=== PATIENT | female | born 1935 | race Caucasian/White ===

== ENCOUNTER 2017-09-19 16:14 | Inpatient (IN) | payer MEDICARE ==
[~2017-09-19] VITALS: Ht 162.6 cm; Wt 61.2 kg
[2017-09-19] MEDS ORDERED: Sodium Chloride 500ML 500 ML IV ONE ×2 (16:18→18:15)
[2017-09-19] MEDS ORDERED: NAMENDA5 MG ORAL (16:39)
[2017-09-19] MEDS ORDERED: ASPIR 8181 MG ORAL (16:39)
[2017-09-19] MEDS ORDERED: DONEPEZIL HCL10 M2 ORAL (16:39)
[2017-09-19] MEDS ORDERED: ATORVASTATIN CA20 MG ORAL (16:39)
[2017-09-19] MEDS ORDERED: RAMIPRIL10 MG ORAL (16:39)
[2017-09-19] MEDS ORDERED: HYDROCHLOROTHIA25 MG ORAL (16:39)
[2017-09-19 16:41] LABS: BASOPHILS % (AUTO) 1.1 % (0.0-2.0); EOSINOPHILS % (AUTO) 1.1 % (0.0-3.0); HEMATOCRIT 38.2 % (37.0-47.0); HEMOGLOBIN 13.1 G/DL (12.0-16.0); LYMPHOCYTES % (AUTO) 18.9 % (20.0-45.0); MEAN CORPUSCULAR VOLUME 88 FL (80-99); PLATELET COUNT 219 K/UL (150-450); RED BLOOD COUNT 4.32 M/UL (4.20-5.40); RED CELL DISTRIBUTION WIDTH 13.3 % (11.6-14.8); WHITE BLOOD COUNT 9.6 K/UL (4.8-10.8)
[2017-09-19 16:43] VITALS: BP 95/52
[2017-09-19] MEDS ORDERED: RAMIPRIL5 MG ORAL (16:55)
[2017-09-19 16:56] LABS: ANION GAP 12 mmol/L (5-15); BLOOD UREA NITROGEN 52 mg/dL (7-18); CALCIUM 9.7 MG/DL (8.5-10.1); CARBON DIOXIDE 25 MMOL/L (21-32); CHLORIDE 101 MMOL/L (98-107); CREATININE 1.9 MG/DL (0.55-1.30); SODIUM 138 MMOL/L (136-145)
--- NOTE | 2017-09-19 17:04 | Diagnostic Imaging Report ---
Indication: Syncopal episode x2 days Technique: spiral acquisitions obtained through the brain. Angled axial and coronal 5 x 5 mm slices were reconstructed. No IV contrast utilized. Radiation dose was minimized using automated exposure control Total dose length product 1291.03 mGycm. CTDIvol(s) 70.38 mGy Comparison: none FINDINGS: No acute hemorrhage or edema. No mass effect or midline shift. There is age-related enlargement of the ventricles and extra axial CSF spaces. There is periventricular deep white matter ischemic change. Normal etienne-white differentiation. Visualized orbits are unremarkable. Visualized sinuses are unremarkable. Intact calvarium. IMPRESSION: Chronic and age-related changes. Negative for acute intracranial bleed or mass effect The CT scanner at [facility] is accredited by the [employer] and the scans are performed using protocols designed to limit radiation exposure to as low as reasonably achievable to attain images of sufficient resolution adequate for diagnostic evaluation
[2017-09-19 17:13] LABS: ALANINE AMINOTRANSFERASE 23 U/L (12-78); ALBUMIN 3.6 G/DL (3.4-5.0); ALBUMIN/GLOBULIN RATIO 0.9 (1.0-2.7); ALKALINE PHOSPHATASE 58 U/L (46-116); ASPARTATE AMINO TRANSFERASE 16 U/L (15-37); BILIRUBIN,TOTAL 1.1 MG/DL (0.2-1.0); CKMB 1.1 NG/ML (0.0-3.6); CREATINE KINASE 64 U/L (26-308)
[2017-09-19 17:14] LABS: BILIRUBIN,DIRECT 0.3 MG/DL (0.0-0.3)
--- NOTE | 2017-09-19 17:19 | Diagnostic Imaging Report ---
Indication: Dyspnea Technique: One view of the chest Comparison: none Findings: Left chest pacemaker is noted. Lungs and pleural spaces are clear. Normal heart size. Tortuous calcified aorta Impression: No acute process
[2017-09-19 18:22] VITALS: BP 115/93
--- NOTE | 2017-09-19 18:24 | Emergency Room Report ---
History of Present Illness General Chief Complaint: Syncope Source: Patient Present Illness HPI 82-year-old female presents to ED status post syncopal episode. Daughter at bedside states that patient passed out today with shipping and receiving coordinator. Witnessed. No head injury. On arrival patient is awake alert oriented. History of dementia but is answering questions. States she feels okay. Denies any headache. Denies dizziness or chest pain. Per EMS blood pressure was low. Daughter states that patient had pacemaker placed 2 weeks ago at [facility]. Has been having dizziness since pacemaker was placed. Also states that her blood pressure has been on the low side. No other aggravating relieving factors. Denies any other associated symptoms Allergies: Coded Allergies: No Known Allergies (Unverified , 09/19/17) Patient History Past Medical History: dementia Past Surgical History: pacemaker Pertinent Family History: none Social History: Denies: smoking, alcohol use, drug use Now: No Immunizations: UTD Reviewed Nursing Documentation: PMH: Agreed; PSxH: Agreed Nursing Documentation-PMH Hx Cardiac Problems: Yes - PACEMAKER Hx Hypertension: Yes - HIGH CHOLESTEROL Hx Neurological Problems: Yes - DEMENTIA Review of Systems All Other Systems: negative except mentioned in HPI Physical Exam Vital Signs Date Time Temp Pulse Resp B/P (MAP) Pulse Ox O2 Delivery O2 Flow Rate FiO2 09/19/17 16:06 97.2 96 16 96/45 98 Room Air 97.2 Sp02 EP Interpretation: reviewed, normal General Appearance: no apparent distress, alert, GCS 15, non-toxic Head: normocephalic, atraumatic Eyes: bilateral eye normal inspection, bilateral eye PERRL ENT: hearing grossly normal, normal pharynx, no angioedema, normal voice Neck: full range of motion, supple/symm/no masses Respiratory: chest non-tender, lungs clear, normal breath sounds, speaking full sentences Cardiovascular #1: regular rate, rhythm, no edema Cardiovascular #2: 2+ carotid (R), 2+ carotid (L), 2+ radial (R), 2+ radial (L) , 2+ dorsalis pedis (R), 2+ dorsalis pedis (L) Gastrointestinal: normal bowel sounds, non tender, soft, non-distended, no guarding, no rebound Rectal: deferred Genitourinary: normal inspection, no CVA tenderness Musculoskeletal: back normal, gait/station normal, normal range of motion, non- tender Neurologic: alert, oriented x3, responsive, motor strength/tone normal, sensory intact, speech normal Psychiatric: judgement/insight normal, memory normal, mood/affect normal, no suicidal/homicidal ideation Reflexes: 3+ bicep (R), 3+ bicep (L), 3+ tricep (R), 3+ tricep (L), 3+ knee (R) , 3+ knee (L) Skin: normal color, no rash, warm/dry, well hydrated Lymphatic: no adenopathy Procedures Splinting Splinting : Consent: Verbal Pre-Made Type: velcro Splint: wrist Pre-Proc Neuro Vasc Exam: normal Post-Proc Neuro Vasc Exam: normal Patient Tolerated: Well Complications: None Medical Decision Making Diagnostic Impression: Primary Impression: Syncope Qualified Codes: R55 - Syncope and collapse Additional Impression: Renal insufficiency ER Course Hospital Course 82-year-old F presents ED s/p syncopal episode. hypotensive in field Differential diagnoses include: HI/unstable angina, arrythmia, dehydration, CVA/ TIA Clinical course Patient placed on stretcher. on evening anchor. After initial history and physical I ordered labs, EKG, chest x-ray, IVFs, CT Brain labs reviewed- no leukocytosis, hemoglobin/hematocrit ok, BUN/Cr 52/1.9, trop negative EKG- paced rhythm, no acute ischemic changes interpreted by me Chest x-ray- pacemaker, no acute process CT brain-unremarkable After IV hydration blood pressure improved. Discussed case with ruby engineer Dr. Jackson. Patient's blood pressure medications might be too high a dose. Patient also had episode of large bowel movement today which could be contributing to her hypotension and dehydration Case discussed with Dr. Mitchell and he agreed to accept the patient to his service for further care and support I. I feel this is a highly complex case requiring extensive working including EKG/Rhythm strip, Xray/CT/US, Blood/urine lab work, repeat exams while in ED, and administration of strong opiates/narcotics for pain control, admission to hospital or close patient follow up. Diagnosis - syncope, renal insufficiency admitted to telemetry in serious condition Labs Test 09/19/17 16:24 White Blood Count 9.6 K/UL (4.8-10.8) Red Blood Count 4.32 M/UL (4.20-5.40) Hemoglobin 13.1 G/DL (12.0-16.0) Hematocrit 38.2 % (37.0-47.0) Mean Corpuscular Volume 88 FL (80-99) Mean Corpuscular Hemoglobin 30.2 PG (27.0-31.0) Mean Corpuscular Hemoglobin Concent 34.2 G/DL (32.0-36.0) Red Cell Distribution Width 13.3 % (11.6-14.8) Platelet Count 219 K/UL (150-450) Mean Platelet Volume 7.4 FL (6.5-10.1) Neutrophils (%) (Auto) 74.0 % (45.0-75.0) Lymphocytes (%) (Auto) 18.9 % (20.0-45.0) Monocytes (%) (Auto) 5.0 % (1.0-10.0) Eosinophils (%) (Auto) 1.1 % (0.0-3.0) Basophils (%) (Auto) 1.1 % (0.0-2.0) Sodium Level 138 MMOL/L (136-145) Potassium Level 4.0 MMOL/L (3.5-5.1) Chloride Level 101 MMOL/L (98-107) Carbon Dioxide Level 25 MMOL/L (21-32) Anion Gap 12 mmol/L (5-15) Blood Urea Nitrogen 52 mg/dL (7-18) Creatinine 1.9 MG/DL (0.55-1.30) Estimat Glomerular Filtration Rate mL/min (>60) Glucose Level 147 MG/DL (74-106) Calcium Level 9.7 MG/DL (8.5-10.1) Total Bilirubin 1.1 MG/DL (0.2-1.0) Direct Bilirubin 0.3 MG/DL (0.0-0.3) Aspartate Amino Transf (AST/SGOT) 16 U/L (15-37) Alanine Aminotransferase (ALT/SGPT) 23 U/L (12-78) Alkaline Phosphatase 58 U/L (46-116) Total Creatine Kinase 64 U/L (26-308) Creatine Kinase MB 1.1 NG/ML (0.0-3.6) Creatine Kinase MB Relative Index 1.7 Troponin I 0.000 ng/mL (0.000-0.056) Pro-B-Type Natriuretic Peptide 356 pg/mL (0-125) Total Protein 7.4 G/DL (6.4-8.2) Albumin 3.6 G/DL (3.4-5.0) Globulin 3.8 g/dL Albumin/Globulin Ratio 0.9 (1.0-2.7) EKG Diagnostic Results Rate: normal Rhythm: other - paced ST Segments: no acute changes ASA given to the pt in ED: No Rhythm Strip Diag. Results EP Interpretation: yes Rhythm: no PVC's, no ectopy Chest X-Ray Diagnostic Results Chest X-Ray Diagnostic Results : Chest X-Ray Ordered: Yes # of Views/Limited/Complete: 1 View Indication: Other - syncope EP Interpretation: Yes Interpretation: no consolidation, no effusion, no pneumothorax, no acute cardiopulmonary disease, other - pacemaker Impression: No acute disease Electronically Signed by: Electronically signed by Almas Morse MD Other X-Ray Diagnostic Results Other X-Ray Diagnostic Results : X-Ray ordered: R wrist # of Views/Limited Vs Complete: 3 View Indication: Pain EP Interpretation: Yes Interpretation: no dislocation, no soft tissue swelling, no fractures Impression: No acute disease Electronically Signed by: Electronically signed by Almas Morse MD CT/MRI/US Diagnostic Results CT/MRI/US Diagnostic Results : Imaging Test Ordered: CT Head Impression no acute process Last Vital Signs Date Time Temp Pulse Resp B/P (MAP) Pulse Ox O2 Delivery O2 Flow Rate FiO2 09/19/17 16:43 97.2 60 12 95/52 98 Room Air 97.2 Status: improved Disposition: ADMITTED INPATIENT Condition: Serious Referrals: NON PHYSICIAN (PCP) Almas Morse MD Sep 19, 2017 18:24
[2017-09-19 20:00] VITALS: BP 122/51
[2017-09-19 21:18] LABS: BILIRUBIN, URINE NEGATIVE (NEGATIVE); COLOR,URINE AMBER; GLUCOSE, URINE (UA) NEGATIVE (NEGATIVE); KETONES,URINE 1+ (NEGATIVE); LEUKOCYTE ESTERASE ,URINE 1+ (NEGATIVE); NITRITE,URINE NEGATIVE (NEGATIVE); PH,URINE 5 (4.5-8.0); PROTEIN,URINE 1+ (NEGATIVE); UROBILINOGEN,URINE NORMAL MG/DL (0.0-1.0)
[2017-09-19 21:19] LABS: APPEARANCE,URINE SLIGHTLY CLOUDY
[2017-09-19] MEDS ORDERED: HYDROcodone/Acetamin 10/325 tab ORAL PRN (22:00)
[2017-09-19] MEDS ORDERED: Norco 5mg/325mg tab ORAL PRN (22:00)
[2017-09-19] MEDS: Atorvastatin 20mg tab ORAL SCH (22:13)
[2017-09-19] MEDS: Donepezil 5mg Tab ORAL SCH (22:14)
[2017-09-19] MEDS: Heparin 5000 units/ml inj SUBQ SCH (22:48)
[2017-09-20] VITALS (7 sets, daily range): BP systolic 93–139; BP diastolic 45–68
--- NOTE | 2017-09-20 08:50 | History and Physical ---
History & Physical (DB) History & Physical History & Physical H&P DICT # [id number] Jefry Mitchell MD Sep 20, 2017 08:50
[2017-09-20] MEDS ORDERED: Ramipril 2.5mg cap ORAL SCH (09:00)
[2017-09-20] MEDS: Aspirin Baby 81mg ORAL SCH (09:19)
[2017-09-20] MEDS: Memantine 5 MG TAB ORAL SCH (09:21)
[2017-09-20] MEDS: Heparin 5000 units/ml inj SUBQ SCH ×2 (09:23→21:03)
[2017-09-20] MEDS ORDERED: Cephalexin 250mg Cap ORAL SCH (10:30)
[2017-09-20 10:48] LABS: BASOPHILS % (AUTO) 1.1 % (0.0-2.0); EOSINOPHILS % (AUTO) 2.3 % (0.0-3.0); HEMATOCRIT 35.2 % (37.0-47.0); HEMOGLOBIN 11.8 G/DL (12.0-16.0); LYMPHOCYTES % (AUTO) 18.3 % (20.0-45.0); MEAN CORPUSCULAR VOLUME 90 FL (80-99); MONOCYTES % (AUTO) 7.3 % (1.0-10.0); PLATELET COUNT 201 K/UL (150-450); RED BLOOD COUNT 3.91 M/UL (4.20-5.40); RED CELL DISTRIBUTION WIDTH 13.5 % (11.6-14.8); WHITE BLOOD COUNT 8.7 K/UL (4.8-10.8)
[2017-09-20 11:42] LABS: ANION GAP 12 mmol/L (5-15); BLOOD UREA NITROGEN 47 mg/dL (7-18); CALCIUM 8.7 MG/DL (8.5-10.1); CARBON DIOXIDE 22 MMOL/L (21-32); CHLORIDE 105 MMOL/L (98-107); CREATININE 1.5 MG/DL (0.55-1.30); POTASSIUM 4.1 MMOL/L (3.5-5.1); SODIUM 138 MMOL/L (136-145)
--- NOTE | 2017-09-20 12:06 | Diagnostic Imaging Report ---
Indication: Pain Findings: 3 views of the right wrist were obtained. No fracture or malalignment identified. There is narrowing of the joint space within several intracarpal joints, base of the thumb and wrist. The bones are osteopenic. No malalignment identified. IMPRESSION: No acute injury identified Arthrosis
--- NOTE | 2017-09-20 15:00 | Cardiology Report ---
APPROVED REPORT EKG Measurement Heart [id number] Right bundle branch block Abnormal ECG Atrial Pacemaker
--- NOTE | 2017-09-20 15:06 | Cardiology Report ---
APPROVED REPORT EKG Measurement Heart [id number] Atrial Pacemaker Incomplete right bundle branch block Septal infarct, age undetermined Abnormal ECG
[2017-09-20] MEDS: Cephalexin 250mg Cap ORAL SCH ×2 (15:10→21:00)
--- NOTE | 2017-09-20 16:16 | History and Physical Report ---
DATE OF ADMISSION: 09/19/2017 REASON FOR ADMISSION: Syncope. HISTORY OF PRESENT ILLNESS: The patient is a very pleasant 82-year-old female with advanced dementia, cognitive impairment, hypertension, hyperlipidemia, and sick sinus syndrome, status post pacemaker placement on 08/30/[address] Twin Saleem at [facility], presenting with a syncopal episode in the setting of dehydration and possible urinary tract infection. The patient was admitted on 08/29/2017 to [facility] with a syncopal episode. At that point, she had acute kidney injury thought to be prerenal due to dehydration. She was seen by Dr. Kamlesh Weiss and a pacemaker was placed by Dr. Twin Saleem. During that admission, she had heart rate as low as 29. Her workup included a CT scan of the head, carotid ultrasound, and echo, as well as EP evaluation as noted above. Nonetheless, the patient did well and was discharged home. She has 24-hour caregiver. She was at her usual state of health until yesterday. Midday, when she went for a walk with her caregiver, she had a sudden bout of diarrhea that she was unable to control and then returned home. At home, she went back to the bathroom while she was being cleaned, she felt faint and lost consciousness for an unknown amount of time. She quickly recovered and was back at her baseline per her daughter. Please note, all history is obtained from the daughter as the patient cannot provide any history. She is currently back at her baseline. Upon arrival to [place], she was hypotensive with acute kidney injury. She has since been hydrated. She denies any headaches, dizziness, change in vision, hearing, or balance, chest pain, palpitations, shortness of breath, nausea vomiting, further diarrhea, constipation, dysuria, urgency, frequency, hesitancy, or any other complaints. PAST MEDICAL HISTORY: 1. Hypertension. 2. Hyperlipidemia. 3. Cognitive impairment with dementia. 4. Sick sinus syndrome with marked sinus bradycardia, status post pacemaker 08/30/2017. PRIOR TO ADMISSION MEDICATIONS: 1. Aspirin 81 mg p.o. daily. 2. Atorvastatin 20 mg at bedtime. 3. Benazepril 10 mg daily. 4. Hydrochlorothiazide 25 mg daily. 5. Namenda 5 mg daily. 6. Ramipril 5 mg daily. ALLERGIES: No known drug allergies. SOCIAL HISTORY: The patient is originally from [place], now living here with her kids. No known history of tobacco, alcohol, or drug use. FAMILY HISTORY: Noncontributory. REVIEW OF SYSTEMS: Unobtainable. PHYSICAL EXAMINATION: VITAL SIGNS: Temperature is 97.5, pulse 60, blood pressure 106/54, respiratory rate 16, and saturating 95% on room air. GENERAL: She is a well-developed and well-nourished female, in no acute distress. Awake, alert, and x1. HEENT: Normocephalic and atraumatic. Oropharynx is clear with moist mucous membranes. NECK: Supple without lymphadenopathy or jugular venous distention. CHEST: Clear to auscultation bilaterally. Pacemaker is palpable. HEART: Regular rate and rhythm. ABDOMEN: Soft, nontender, and nondistended. EXTREMITIES: No cyanosis, clubbing, or edema. ANCILLARY DATA: White count 9.6, hemoglobin 13.1, and platelet count 219,000. Sodium 138, potassium 4, chloride 101, bicarbonate 25, BUN 52, creatinine 1.9, glucose 147, and calcium 9.7. Total bilirubin 1.1. Direct bilirubin 0.3. AST 16, ALT 23, alkaline phosphatase 58, and total CK 64. Troponin negative. BNP 356. Total protein 7.4. Albumin 3.6. Globulin 3.8. Urinalysis, 1+ protein, 1+ ketones, 1+ leukocyte esterase, 10 to 15 white blood cells, few bacteria, few mucus. IMAGING: CT scan of the head, chronic age-related changes. Chest x-ray showed a left pacemaker and no other abnormalities. EKG is atrial paced at 60. [facility] record 08/31/2017 carotid ultrasound shows less than 50% stenosis on the right and less than 50% stenosis in the left. A 08/30/2017 echocardiogram, normal LV systolic function, EF is 66%. No wall motion abnormalities. PA pressure of 52. On 08/29/2017, CT of the brain does not show any acute findings. ASSESSMENT: The patient is an 82-year-old female with a history of hypertension, hyperlipidemia, sick sinus syndrome, status post recent pacemaker, dementia, cognitive impairment, presenting with a syncopal episode in the setting of dehydration, diarrhea, acute kidney injury, and a possible urinary tract infection. She has had an extensive neurologic and cardiac workup. Her pacemaker is functioning fine and her symptoms have completely resolved with IV fluids. We will continue to hydrate her and monitor her. We will also get a PT and OT evaluation if the patient's kidney function improves and she is otherwise stable. We will likely discharge her back home with her caregiver tomorrow. PROBLEM LIST: 1. Syncopal episode likely secondary to dehydration and possible vasovagal component. 2. Sick sinus syndrome status post pacemaker 08/30/[address] Twin Saleem at [facility]. 3. Urinary tract infection. 4. Hypertension. 5. Hyperlipidemia. 6. Cognitive impairment/dementia. 7. Pulmonary hypertension. TREATMENT PLAN: 1. cement contractor/telemetry. 2. Follow up with EKG and troponin. 3. Intravenous fluid hydration. 4. Parameters placed on her antihypertensive medications. 5. Follow up repeat BUN and creatinine after intravenous fluids. 6. If renal function not improved with fluids, we will workup further. 7. PT/OT evaluation. 8. We will start Keflex for urinary tract infection. 9. Fall and aspiration precautions. 10. Cardiac diet. 11. DVT prophylaxis with heparin subcutaneous. 12. The patient is a Full Code. 13. Case discussed with the patient's primary real estate leasing manager at [facility], Dr. Kamlesh Weiss, and the ER doctor, . 14. Case discussed with nursing on floor. Jefry Mitchell M.D. DR: YULI JOB#: [id number] CC:
[2017-09-20] MEDS ORDERED: Donepezil 5mg Tab ORAL SCH (21:00)
[2017-09-20] MEDS: Donepezil 5mg Tab ORAL SCH (21:00)
[2017-09-20] MEDS: Atorvastatin 20mg tab ORAL SCH (21:00)
[2017-09-21] VITALS: BP 145/61
[2017-09-21] MEDS: Cephalexin 250mg Cap ORAL SCH (06:50)
[2017-09-21 07:49] LABS: BASOPHILS % (AUTO) 1.3 % (0.0-2.0); EOSINOPHILS % (AUTO) 4.1 % (0.0-3.0); HEMOGLOBIN 11.7 G/DL (12.0-16.0); MEAN CORPUSCULAR VOLUME 91 FL (80-99); MONOCYTES % (AUTO) 8.6 % (1.0-10.0); PLATELET COUNT 188 K/UL (150-450); RED BLOOD COUNT 3.86 M/UL (4.20-5.40); RED CELL DISTRIBUTION WIDTH 13.2 % (11.6-14.8); WHITE BLOOD COUNT 7.1 K/UL (4.8-10.8)
[2017-09-21 08:00] VITALS: BP 138/67
[2017-09-21 08:11] LABS: ANION GAP 9 mmol/L (5-15); BLOOD UREA NITROGEN 28 mg/dL (7-18); CALCIUM 8.9 MG/DL (8.5-10.1); CARBON DIOXIDE 24 MMOL/L (21-32); CHLORIDE 110 MMOL/L (98-107); SODIUM 142 MMOL/L (136-145)
[2017-09-21] MEDS ORDERED: Ramipril 2.5mg cap ORAL SCH (09:00)
[2017-09-21] MEDS: Aspirin Baby 81mg ORAL SCH (09:13)
[2017-09-21] MEDS: Memantine 5 MG TAB ORAL SCH (09:14)
[2017-09-21] MEDS: Heparin 5000 units/ml inj SUBQ SCH (09:22)
--- NOTE | 2017-09-21 10:14 | Discharge Summary ---
Discharge Summary Hospital Course Date of Admission Sep 19, 2017 at 16:51 Date of Discharge DICTATED [id number] Admitting Diagnosis syncope Reason for Hospitalization: Sycope/dehydration HPI Nelda Gross is a 82 year old female who was admitted on Sep 19, 2017 at 16:51 for Syncope Consultations NONE Procedures NONE Hospital Course Pt admitted S/P IVF, cr normalized, Sx's resolved Discharge Condition Upon Discharge: improving Discharge Disposition Patient was discharged to Discharge Diagnoses: (1) Renal insufficiency (2) Syncope Jefry Mitchell MD Sep 21, 2017 10:14
--- NOTE | 2017-09-21 10:20 | General Progress Note ---
Assessment/Plan Problem List: (1) Renal insufficiency ICD Codes: N28.9 - Disorder of kidney and ureter, unspecified SNOMED: 465277843, [id number] (2) Syncope ICD Codes: R55 - Syncope and collapse SNOMED: 480120023, [id number] Qualifiers: Status: doing well Assessment/Plan ASSESSMENT: The patient is an 82-year-old female with a history of hypertension , hyperlipidemia, sick sinus syndrome, status post recent pacemaker, dementia, cognitive impairment, presenting with a syncopal episode in the setting of dehydration, diarrhea, acute kidney injury, and a possible urinary tract infection. She has had an extensive neurologic and cardiac workup. Her pacemaker is functioning fine and her symptoms have completely resolved with IV fluids. PROBLEM LIST: 1. Syncopal episode likely secondary to dehydration and possible vasovagal component - RESOLVED 2. Sick sinus syndrome status post pacemaker 08/30/[address] Twin Saleem at [facility]. 3. Urinary tract infection. 4. Hypertension. 5. Hyperlipidemia. 6. Cognitive impairment/dementia. 7. Pulmonary hypertension. TREATMENT PLAN: -Continue to hold HCTZ and RAMPRIL UNTIL F/U WITH DR. SANCHEZ -Home BP log -Home PT/OT -Fall precautions -Complete course of Keflex -D/C home with HH Subjective Allergies: Coded Allergies: No Known Allergies (Unverified , 09/19/17) Subjective AFVSS Stable on RA BP better Cr normalized No F/C, no dizziness, no CP, no SOB Objective Last 24 Hour Vital Signs Date Time Temp Pulse Resp B/P (MAP) Pulse Ox O2 Delivery O2 Flow Rate FiO2 09/21/17 08:00 97.2 61 19 138/67 99 97.2 09/21/17 04:00 60 09/21/17 00:00 60 09/21/17 00:00 98.0 60 20 145/61 95 98.0 09/20/17 20:00 97.9 60 20 139/61 97 97.9 09/20/17 20:00 60 09/20/17 16:00 60 09/20/17 16:00 98.1 61 18 114/45 97 98.1 09/20/17 16:00 98.1 61 18 114/48 97 98.1 09/20/17 12:00 60 09/20/17 12:00 98.0 62 20 112/48 98 98.0 Intake and Output 09/20/17 09/21/17 19:00 07:00 Intake Total 1400 ml Balance 1400 ml Intake Oral 600 ml IV Total 800 ml # Voids 5 2 # Bowel Movements 1 Laboratory Tests 09/20/17 10:30: White Blood Count 8.7, Red Blood Count 3.91L, Hemoglobin 11.8L, Hematocrit 35.2L , Mean Corpuscular Volume 90, Mean Corpuscular Hemoglobin 30.1, Mean Corpuscular Hemoglobin Concent 33.4, Red Cell Distribution Width 13.5, Platelet Count 201, Mean Platelet Volume 7.9, Neutrophils (%) (Auto) 71.0, Lymphocytes (% ) (Auto) 18.3L, Monocytes (%) (Auto) 7.3, Eosinophils (%) (Auto) 2.3, Basophils (%) (Auto) 1.1, Sodium Level 138, Potassium Level 4.1, Chloride Level 105, Carbon Dioxide Level 22, Anion Gap 12, Blood Urea Nitrogen 47H, Creatinine 1.5H , Estimat Glomerular Filtration Rate , Glucose Level 155H, Calcium Level 8.7, Troponin I 0.000 09/21/17 06:25: White Blood Count 7.1, Red Blood Count 3.86L, Hemoglobin 11.7L, Hematocrit 35.0L , Mean Corpuscular Volume 91, Mean Corpuscular Hemoglobin 30.2, Mean Corpuscular Hemoglobin Concent 33.3, Red Cell Distribution Width 13.2, Platelet Count 188, Mean Platelet Volume 7.9, Neutrophils (%) (Auto) 69.0, Lymphocytes (% ) (Auto) 17.0L, Monocytes (%) (Auto) 8.6, Eosinophils (%) (Auto) 4.1H, Basophils (%) (Auto) 1.3, Sodium Level 142, Potassium Level 4.0, Chloride Level 110H, Carbon Dioxide Level 24, Anion Gap 9, Blood Urea Nitrogen 28H, Creatinine 1.0, Estimat Glomerular Filtration Rate , Glucose Level 91, Calcium Level 8.9, Troponin I 0.000 Height (Feet): 5 Height (Inches): 4.00 Weight (Pounds): 135 General Appearance: WD/WN, no apparent distress EENT: PERRL/EOMI, normal ENT inspection, TMs normal, pharynx normal Neck: non-tender, normal alignment, supple, normal inspection Cardiovascular: normal peripheral pulses, normal rate, regular rhythm Respiratory/Chest: chest wall non-tender, lungs clear, normal breath sounds Abdomen: normal bowel sounds, non tender, soft, no organomegaly, no mass Edema: no edema noted Arm (L), no edema noted Arm (R), no edema noted Leg (L), no edema noted Leg (R), no edema noted Pedal (L), no edema noted Pedal (R), no edema noted Generalized Jefry Mitchell MD Sep 21, 2017 10:20
[2017-09-21] MEDS ORDERED: ATORVASTATIN CA20 MG ORAL (11:45)
[2017-09-21] MEDS ORDERED: ASPIR-LOW81 MG ORAL (11:45)
[2017-09-21] MEDS ORDERED: DONEPEZIL HCL10 M2 ORAL (11:46)
[2017-09-21] MEDS ORDERED: NAMENDA5 MG ORAL (11:48)
[2017-09-21] MEDS ORDERED: CEPHALEXIN500 MG ORAL (11:58)
[2017-09-21] MEDS ORDERED: Cephalexin 500mg cap ORAL SCH (15:00)
--- NOTE | 2017-09-21 22:01 | Discharge Summary ---
DATE OF ADMISSION: 09/19/2017 DATE OF DISCHARGE: 09/21/2017 ADMISSION DIAGNOSIS: Syncopal episode secondary to dehydration and possible vasovagal component. DISCHARGE DIAGNOSES: 1. Syncopal episode, likely secondary to dehydration and possible vasovagal component, resolved. 2. Sick sinus syndrome, status post pacemaker on 08/30/2017, by Dr. Twin Saleem at [facility]. 3. UTI. 4. Hypertension. 5. Hyperlipidemia. 6. Cognitive impairment/dementia. 7. Pulmonary hypertension. HISTORY OF PRESENT ILLNESS AND REASON FOR ADMISSION: The patient is an 82-year-old female with history of hypertension, hyperlipidemia, sick sinus syndrome, recent pacemaker, dementia, cognitive impairment, presenting with a syncopal episode in the setting of dehydration, diarrhea, acute kidney injury, and possible UTI. She has had an extensive neurologic and cardiac workup at [facility]. Pacemaker is functioning well and her symptoms have completely resolved with IV fluids. HOSPITAL COURSE: The patient was admitted to the hospital and received IV fluid hydration. Her antihypertensive medications were stopped. Her creatinine normalized. Her symptoms abated completely. She worked with physical therapy and occupational therapy. Case was discussed with her barrel raiser at [facility] with whom she will follow up. DISCHARGE MEDICATION LIST: 1. Aspirin 81 mg p.o. daily. 2. Atorvastatin 20 mg p.o. daily. 3. Hydrochlorothiazide 25 mg p.o. daily. 4. Namenda 5 mg p.o. daily. 5. Ramipril 5 mg p.o. daily. 6. Keflex 250 mg t.i.d. for 5 additional days. DISCHARGE DIET: Cardiac. DISCHARGE ACTIVITY: As tolerated with fall precautions. DISCHARGE FOLLOWUP: 1. Dr. Nancy Shine, environmental aide. 2. Dr. Weiss in 1 to 2 weeks. 3. The patient will keep a blood pressure log to take to Dr. Weiss. 4. The patient already has home health services including PT, OT, and nursing setup. Brie Marvin JOB#: [id number] CC:
== END 2017-09-21 13:58 | disposition home health service (06) | DRG 641 ==
LOC: EDBD 16:14 → EMR 16:28 → 2E 16:51 → EDBEDREQ 17:59 → 2E 22:18
DX: E86.0 Dehydration (principal); N39.0 Urinary tract infection, site not specified; N17.9 Acute kidney failure, unspecified; R55 Syncope and collapse; I10 Essential (primary) hypertension; E78.5 Hyperlipidemia, unspecified; F03.90 Unspecified dementia, unspecified severity, without behavioral disturbance, psychotic disturbance, mood disturbance, and anxiety; Z95.0 Presence of cardiac pacemaker; I27.20 Pulmonary hypertension, unspecified
CPT/HCPCS: 36415; 70450; 71045; 80048; 80053; 81003; 82248; 82550; 82553; 83880; 84484; 85025; 87086; 93005; 99285